=== PATIENT | female | born 1960 | race Caucasian/White ===

== ENCOUNTER 2017-12-11 06:11 | Inpatient (IN) | payer BC ==
[2017-11-29 09:13] LABS: ABSOLUTE BASOPHILS 0.1 thou/uL (0.0-0.2); ABSOLUTE EOSINOPHILS 0.2 thou/uL (0.0-0.7); ABSOLUTE LYMPHOCYTES 2.3 thou/uL (0.8-5.3); ABSOLUTE MONOCYTES 0.4 thou/uL (0.0-1.2); ABSOLUTE NEUTROPHILS 4.3 thou/uL (1.6-8.1); BASOPHILS 0.8 %; EOSINOPHILS 2.8 %; HEMATOCRIT 39.6 % (37.0-47.0); HEMOGLOBIN 13.5 gm/dL (12.0-15.0); LYMPHOCYTES 32.1 %; MCH 31.2 pg (26.0-34.0); MCHC 34.2 g/dL (28.0-37.0); MCV 91.2 fL (80.0-100.0); MONOCYTES 5.3 %; MPV 7.2 fl. (7.2-11.1); NUCLEATED RBCS 0 /100WBC; PLATELET COUNT* 263 thou/uL (150-400); RBC 4.35 mil/uL (4.20-5.00); RDW-CV 14.1 % (10.5-14.5); WBC 7.2 thou/uL (4.0-11.0)
[2017-11-29 09:34] LABS: ALBUMIN 3.6 g/dL (3.4-5.0); CALCIUM 8.7 mg/dL (8.5-10.1); CREATININE 0.9 mg/dL (0.6-1.3); POTASSIUM 4.4 mmol/L (3.5-5.1); TOTAL BILIRUBIN 0.5 mg/dL (<0.1-1.0); TOTAL PROTEIN 6.8 g/dL (6.4-8.2)
[2017-11-29 10:27] LABS: ESR (SEDRATE) 30 mm/hr (0-30)
--- NOTE | 2017-11-29 17:17 | EKG ---
[place] [address] ELECTROCARDIOGRAM REPORT Name: RADHA KINGSTONDOMINIC REDDINGE Room: PRE IN [facility]#: [id number] Admission: Attend Phys: Blayne Warner Discharge: Date of : 62 Report #: [id number] THIS REPORT FOR: //name// [facility] Test Date: 2017-11-29 Test Time: 09:16:18 Pat Name: ANSON KINGSTON Department: Room: Gender: F Inventory Management Specialist: : 1960 Requested By: Morgan Harrison Order Number: [id number] Reading MD: Walker Howell Measurements Intervals Hughes Rate: 93 P: 75 MT: 193 QRS: 43 QRSD: 117 T: 19 QT: 390 QTc: 486 Interpretive Statements Sinus rhythm Nonspecific intraventricular conduction delay Anteroseptal infarct, old Borderline repolarization abnormality No previous ECG available for comparison Electronically Signed On 11-29-2017 17:17:40 IRON ASSORTER by Walker Howell [email or web address] <ELECTRONICALLY SIGNED> By: Walker Howell MD, [facility] 11/29/17 1717 0916 5 Walker Howell MD, FACC /EPI
[2017-11-29 18:10] LABS: GLYCOHEMOGLOBIN (HGB A1C) 6.8 % (4.8-5.6)
[~2017-12-11] VITALS: Ht 175.3 cm; Wt 103.9 kg
[~2017-12-11 06:11] MED LIST: ALTACE10 MG PO; BUMETANIDE0.25 MG/1 PO; BUSPIRONE HCL15 MG PO; CYCLOBENZAPRINE5 MG PO; LABETALOL HCL200 MG PO; LANTUS SUBQ; METFORMIN HCL500 MG PO; MUCINEX1200 MG PO; NAPROSYN500 MG PO; SYNTHROID100 MCG PO; TRAMADOL 50 MG50 MG PO; TURMERIC500 M2 PO; VERAPAMIL E.R240 M1 PO; VITAMIN D1000 UNI1 PO; ZOLOFT25 MG PO
[2017-12-11 12:00] VITALS: BP 131/67
[2017-12-11 16:00] VITALS: BP 160/76
[2017-12-12] VITALS (8 sets, daily range): BP systolic 130–155; BP diastolic 67–87
[2017-12-12 04:21] LABS: HEMATOCRIT 34.5 % (37.0-47.0); HEMOGLOBIN 11.9 gm/dL (12.0-15.0)
--- NOTE | 2017-12-12 16:58 | OP ---
[address] [address] OPERATIVE REPORT Name: ANSON KNIGSTON Room: [address] IN .#: [id number] Admission: 12/11/17 Attend Phys: Blayne Warner Discharge: Date of : 62 Report #: [id number] THIS REPORT FOR: //name// CC: Morgan Joseph DICTATED BY: Javier De Leon DATE OF SERVICE: 12/11/2017 PREOPERATIVE DIAGNOSIS: Advanced degenerative joint disease, left knee. POSTOPERATIVE DIAGNOSIS: Advanced degenerative joint disease, left knee. PROCEDURE: Left total knee arthroplasty with the following components: 1. Mike Persona total knee arthroplasty system with a size 7 CR femoral component. 2. A size E tibial baseplate. 3. A 32 mm tri-peg patella. 4. 40 mm polyethylene spacer, medial congruent. 5. Palacos cement with antibiotics. SURGEON: Morgan Harrison DO. PHARMACY GRADUATE INTERN: Javier De Leon DO. ANESTHESIA: General. ESTIMATED BLOOD LOSS: 200 mL. TOURNIQUET TIME: 60 minutes at 300 mmHg. SPECIMENS: None. COMPLICATIONS: None. CONDITION: The patient is stable to PACU. DRAINS: None. INDICATIONS: The patient is a pleasant 57-year-old female with longstanding left knee pain. She has tried and failed nonoperative care in the form of oral anti-inflammatories, intraarticular steroid injections, physical activity regimen and activity modification. X-rays revealed [id number] apposition of the medial compartment with varus alignment, tricompartmental arthritic change [address] [place] [address] OPERATIVE REPORT Name: ANSON KINGSTON Room: [address] IN [facility].#: [id number] Admission: 12/11/17 Attend Phys: Blayne Warner Discharge: Date of : 62 Report #: [id number] with joint space narrowing, osteophytic lipping and subchondral sclerosis and subchondral cystic change. After discussing the risks, benefits, complications, alternatives and indications to left total knee arthroplasty including but not limited to bleeding, infection, neurovascular injury, need for further surgery, continued pain, DVT, PE and the Hunt anesthesia, she is willing to proceed. Consent is available on the chart. DESCRIPTION OF PROCEDURE: The patient was seen in the preoperatively holding area and operative site initialed by the surgeon. She was brought to the operative suite, placed on operative table in supine position. General anesthesia was induced. A well-padded tourniquet was placed in left upper thigh and the left lower extremity sterilely prepped and draped in normal fashion. Timeout was performed in usual fashion and all attendants were in agreement. Midline incision was made over the left knee through skin and subcutaneous tissue. New scalpel blade was then used to make a medial parapatellar arthrotomy. The patella was everted and Hoffa's fat pad was trimmed and the anterior horn of medial and lateral meniscus was incised. The PCL was sharply excised. ACL was absent. Due to her bleeding, a tourniquet was then insufflated after the leg was exsanguinated with an Esmarch. Attention then turned to the distal femur where intramedullary reamer was used to access the femoral canal. Intramedullary cutting block was then assembled and an extra 2 mm resection was measured to the patient's preoperative extension leg. Distal femoral cutting block was pinned into place and oscillating saw used to make a distal femoral cut in standard fashion. Excess bone was removed. Attention was then turned to the proximal tibia where the extramedullary guide was aligned with the medial third of tibial tubercle, tibial crest, middle of talus and second ray of the foot. A feeler gauge was used to assess the depth of cut and the cutting block was pinned into place. Oscillating saw was used to make a standard proximal tibial cut through the captured cutting block and excess bone was removed. Retractors protected the vital soft tissues. The medial and lateral meniscus was excised with electrocautery. Attention was then turned to the distal femur where the femur was sized to size 7 and the guide was drilled in 3 degrees, external rotation with regard to posterior condylar access. A 4-in-1 cutting block was then impacted into place and pinned into place. Oscillating saw was used to make the standard 4-in-1 cut through the captured cutting block. Excess bone was removed. Osteophytes were removed with a rongeur. There were subchondral cysts that were cleaned out with a curette over the tibia. Posterior osteophytes were then removed with a curved osteotome and mallet off the femur. A trial tibial component was measured and placed and pinned into place. Trial femoral component was impacted into place and a 10 mm spacer was trialed. She had symmetric varus and valgus stress and a full extension and good flexion. Attention was then turned to patella where neurolysis was performed with electrocautery and the reamer was used to resect the patella in the standard fashion. Trial patellar button was measured and 3 peg holes were drilled. Trial patellar button was placed and knee brought through full range of motion showing excellent [place] [address] OPERATIVE REPORT Name: ANSON KINGSTON Room: [address]#: [id number] Admission: 12/11/17 Attend Phys: Blayne Warner Discharge: Date of : 62 Report #: [id number] excellent rotation of the tibia. The proximal tibia was then prepared with the cruciform punch and reamer in standard fashion. Trial components were removed and the knee was thoroughly irrigated with normal saline via pulsatile lavage. Cement was mixed on the back table, mixed with antibiotics and applied to the final components and all bony surfaces. Final components were impacted into place and excess cement was removed. A 40 mm spacer was used for compression while the cement was hardening. After allowing adequate time for the cement to harden, knee was thoroughly irrigated with the Betadine solution followed by normal saline rinse. Final 40 mm polyethylene spacer was placed with audible click as the spacer snapped in position. The knee was brought through full range of motion once again and was extremely stable. Tourniquet was deflated and topical TXA was applied to joint and allowed to congeal. Electrocautery was utilized for hemostasis. A medial parapatellar arthrotomy was closed with #1 Vicryl in tovkyr-zv-ziysk fashion, which was reinforced with a #5 Ti-Cron over the superior medial aspect of the patella. Superficial wound was thoroughly irrigated with normal saline and the subcutaneous tissue closed with a 2-0 Monocryl in simple inverted interrupted fashion. A posterior capsular block was administered with orthopedic cocktail prior to closure of the capsule. Skin was closed with a 3-0 Stratafix and skin glue. Dressing was placed in the form of Mepilex Ag dressing, 4 x 4s, ABDs, soft roll and compressive Moy wrap. The patient was awoken from general anesthesia and brought to PACU in stable fashion. She tolerated the procedure well. Dr. Harrison was present through all critical aspects of surgery. Sponge and needle counts were correct x 2. <ELECTRONICALLY SIGNED> By: Morgan Harrison DO 12/12/17 1658 1454 [id number] Harrison DO /nt
[2017-12-13] VITALS (7 sets, daily range): BP systolic 106–148; BP diastolic 62–78
[2017-12-13 07:09] LABS: HEMATOCRIT 33.1 % (37.0-47.0); HEMOGLOBIN 11.3 gm/dL (12.0-15.0)
--- NOTE | 2017-12-13 15:58 | S ---
[place] [address] SURGICAL PATH RPT PROCEDURE Name: ANSON KINGSTON Room: [address] IN M.R.#: [id number] Admission: 12/11/17 Date of : 62 Discharge: Report #: [id number] Path Case #: [id number] PATHOLOGY REPORT COLLECTION DATE: 12/11/2017 RECEIVED DATE: 12/12/2017 SUBMITTING PHYS: Dr. Morgan Harrison OTHER PHYS: Dr. Edwar Hodges SPECIMEN(S) RECEIVED: A.Left knee bone and tissue * * * * * * * * * * * * FINAL DIAGNOSIS: Left knee bone and tissue: - Mild, nonspecific chronic synovitis, benign meniscus and benign bone and cartilage with severe degenerative changes. (ROBLES:alfredo; 12/13/2017) PATHOLOGIST: Jad Suarez M.D. REPORT ELECTRONICALLY SIGNED BY: Jad Suarez M.D. DATE/TIME: 12/13/2017 15:58 * * * * * * * * * * * * GROSS PATHOLOGY: Received in formalin labeled "Anson Kingston, left knee bone and tissue" and consists of a few irregular-shaped fragments of bone consistent with femoral condyle and tibial plateau ranging in size from 0.9 cm-6.2 cm and aggregating to 10.5 x 9.7 x 2.5 cm. The articular surfaces are roughened, granular, focally nodular, and show areas of eburnation measuring up to 2.3 cm. There are peripheral osteophytes identified measuring up to 0.3 cm thick. There is a separate osteophyte within the aggregate, 3.0 x 1.5 x 0.8 cm. There are fragments of meniscus and fibroadipose tissue present. Ground Systems Engineer sections are submitted A1-A3. A1, tibial plateau, sales representative graphic art, decal A2, osteophyte, sales representative graphic art, decal A3, meniscus and fat, sales representative graphic art (ANETTE; 12/12/2017) CLINICAL HISTORY: Left knee degenerative joint disease INITIAL CPT CODE(S): A; 26185, [address] [place] [address] SURGICAL PATH RPT PROCEDURE Name: ANSON KINGSTON Room: [address] M.R.#: [id number] Admission: 12/11/17 Date of : 62 Discharge: Report #: [id number] Path Case #: [id number] Professional services performed by [employer] at [facility], [address] [place] [id number]. Technical services performed by [employer] at [address] [place] [address], [facility] [address] [place] [address]. [facility] [address] [place] [address] PHONE: [phone] DIRECTOR: Shankar Han M.D. * * * END OF REPORT * * *
[2017-12-14] VITALS (7 sets, daily range): BP systolic 115–139; BP diastolic 55–73
[2017-12-14] MEDS ORDERED: ELIQUIS2.5 MG PO (13:19)
[2017-12-14] MEDS ORDERED: HYDROCODONE-AP1 EAC6 PO (13:59)
[2017-12-14] MEDS ORDERED: OXYCODONE HCL 55 MG PO (14:00)
== END 2017-12-14 14:45 | disposition home health service (06) | DRG 470 ==
LOC: M.PRE 06:11 → M.TBA 11:17 → M.ORTHSURG 11:17 → M.PRE 12:28 → M.ORTHSURG 15:50
PROVIDERS: Orthopaedic Surgery; ADMIT Internal Medicine
PROC: 0SRD0J9 Replacement of Left Knee Joint with Synthetic Substitute, Cemented, Open Approach (ICD-10-PCS; principal; 2017-12-11)
DX: M17.12 Unilateral primary osteoarthritis, left knee (principal); D62 Acute posthemorrhagic anemia; E11.9 Type 2 diabetes mellitus without complications; I10 Essential (primary) hypertension; E03.9 Hypothyroidism, unspecified; F32.9 Major depressive disorder, single episode, unspecified; F17.210 Nicotine dependence, cigarettes, uncomplicated; Z88.8 Allergy status to other drugs, medicaments and biological substances; Z79.4 Long term (current) use of insulin; Z79.899 Other long term (current) drug therapy

== ENCOUNTER 2018-07-02 11:08 | Inpatient (IN) | payer BC ==
[~2018-07-02] VITALS: Ht 175.3 cm; Wt 93.3 kg
[~2018-07-02 11:08] MED LIST changes: +ELIQUIS2.5 MG PO; +HYDROCODONE-AP1 EAC6 PO; +OXYCODONE HCL 55 MG PO
[2018-07-02 11:10] VITALS: BP 123/75
[2018-07-02] MEDS ORDERED: VITAMINC500 PO (11:24)
[2018-07-02] MEDS ORDERED: B COMPLEX1 EACH PO (11:24)
[2018-07-02] MEDS ORDERED: NAPROSYN500 MG PO (11:25)
[2018-07-02] MEDS ORDERED: BUMETANIDE0.25 MG/1 PO (11:25)
[2018-07-02] MEDS ORDERED: PREDNISONE 10 M10 MG PO (11:26)
[2018-07-02] MEDS ORDERED: VERAPAMIL E.R240 M1 PO (11:26)
[2018-07-02] MEDS ORDERED: NIACIN 100MG T100 M1 PO (11:26)
[2018-07-02] MEDS ORDERED: ZITHROMAX1 GM PO (11:27)
[2018-07-02 11:39] LABS: ANION GAP 7 mmol/L (7-16); BUN 11 mg/dL (7-18); CHLORIDE 101 mmol/L (98-107); CO2 27 mmol/L (21-32); CREATININE 0.8 mg/dL (0.6-1.3); GLUCOSE 247 mg/dL (70-99); SODIUM 135 mmol/L (136-145)
[2018-07-02 11:41] LABS: INR 0.9; PROTIME 9.7 Seconds (9.20-11.50)
[2018-07-02 11:52] LABS: ALBUMIN 2.3 g/dL (3.4-5.0); ALKALINE PHOSPHATASE 610 U/L (46-116); LIPASE 98 U/L (73-393); NT-PRO BRAIN NAT PEPTIDE 1403 pg/mL (<300); SGOT 44 U/L (15-37); SGPT 63 U/L (30-65); TOTAL BILIRUBIN 0.7 mg/dL (<0.1-1.0); TOTAL PROTEIN 7.1 g/dL (6.4-8.2); TROPONIN-I LEVEL <0.06 ng/mL (<0.06)
[2018-07-02 12:22] LABS: HYPOCHROMASIA 1+; PLATELET ESTIMATE ADEQUATE
[2018-07-02 12:23] LABS: MACROCYTES 1+; POLYCHROMASIA 1+
[2018-07-02 13:11] LABS: ABSOLUTE LYMPHOCYTES 1.8 thou/uL (0.8-5.3); ABSOLUTE MONOCYTES 0.7 thou/uL (0.0-1.2); ABSOLUTE NEUTROPHILS 6.8 thou/uL (1.6-8.1); HEMATOCRIT 35.5 % (37.0-47.0); MCH 31.8 pg (26.0-34.0); MCHC 33.9 g/dL (28.0-37.0); MCV 93.7 fL (80.0-100.0); MPV 6.7 fl. (7.2-11.1); PLATELET COUNT* 209 thou/uL (150-400); RBC 3.79 mil/uL (4.20-5.00); RDW-CV 14.7 % (10.5-14.5); WBC 9.3 thou/uL (4.0-11.0)
[2018-07-02 14:08] VITALS: BP 111/59
[2018-07-02 14:22] VITALS: BP 108/55
[2018-07-02 16:03] VITALS: BP 121/65
--- NOTE | 2018-07-02 17:14 | EKG ---
[place] [address] ELECTROCARDIOGRAM REPORT Name: HTEEANSON ETRRANCE Room: [address] ADM IN [facility].#: [id number] Admission: 07/02/18 Attend Phys: Blayne Warner Discharge: Date of : 62 Report #: [id number] THIS REPORT FOR: //name// [facility] ED Test Date: 2018-07-02 Test Time: 11:31:09 Pat Name: ANSON KINGSTON Department: Room: [facility] Gender: F [employer] Professor: TEAGAN : 1960 Requested By: Clarke Ayon Order Number: [id number] MD: Radames Caro Measurements Intervals Melba Rate: 91 P: 51 ME: 130 QRS: 8 QRSD: 115 T: 141 QT: 407 QTc: 501 Interpretive Statements Sinus rhythm Nonspecific intraventricular conduction delay Anterior infarct, old Nonspecific repol abnormality, lateral leads Compared to ECG 11/29/2017 09:16:18 No significant changes Electronically Signed On 07-02-2018 17:14:05 CDT by Radames Caro [email or web address] <ELECTRONICALLY SIGNED> By: Radames Caro MD, [facility] 07/02/18 1714 1131 1131 Radames Caro MD, [facility] /EPI
[2018-07-02 17:26] LABS: URINE BILIRUBIN NEGATIVE (Negative); URINE BLOOD NEGATIVE (Negative); URINE CLARITY CLEAR; URINE COLOR YELLOW; URINE GLUCOSE-RANDOM NEGATIVE (Negative); URINE KETONES NEGATIVE (Negative); URINE LEUKOCYTES NEGATIVE (Negative); URINE NITRITE NEGATIVE (Negative); URINE PROTEIN NEGATIVE (Negative); URINE SPECIFIC GRAVITY <= 1.005 (1.005-1.030); URINE UROBILINOGEN 0.2 E.U./dl (0.2-1.0)
[2018-07-02 20:00] VITALS: BP 128/66
[2018-07-02 20:41] LABS: CALCIUM 7.9 mg/dL (8.5-10.1); CREATININE 0.8 mg/dL (0.6-1.3); MAGNESIUM 1.7 mg/dL (1.8-2.4); POTASSIUM 3.7 mmol/L (3.5-5.1)
[2018-07-03] VITALS: BP 130/71
--- NOTE | 2018-07-03 03:36 | NUR ---
PT ALERT ORIENTED. UP AD KAYLYN IN ROOM. TELEMETRY SHOWS SR. O2 AT 3 LITERS NC. TRAMADOL AND FLEXERIL GIVEN HS FOR BACK PAIN. RECHECK OF POTASSIUM 3.7.
[2018-07-03 04:00] VITALS: BP 148/79
[2018-07-03 08:30] VITALS: BP 131/71
--- NOTE | 2018-07-03 10:41 | NUR ---
ASSUMED PT CARE AT 0700 PT IS ALERT AND ORIENTED X 4 PT DENIES PAIN OR SOA ON 3L/NC, PT IS UP AD KAYLYN PT IS NOT A FALL RISK, PT IS ST ON THE MONITOR, PT VSS, PT HAS ABT RUNNING NO ADVERSE REACTION NOTES, PT IS PLEASANT AND COOPERATIVE, WILL CONTINUE TO MONITOR
[2018-07-03 11:38] LABS: NT-PRO BRAIN NAT PEPTIDE 783 pg/mL (<300); TROPONIN-I LEVEL <0.06 ng/mL (<0.06)
[2018-07-03 12:17] VITALS: BP 155/71
--- NOTE | 2018-07-03 13:58 | NUR ---
Pt is A&O. Resides at home alone. Independent with ADLs, continues to work. Pt has a walker that she can use as needed. No home o2. Hx of [facility]. Supportive friends and family. No hx of SNF. Goal is to return home at [place]. Following.
[2018-07-03 16:00] VITALS: BP 144/76
--- NOTE | 2018-07-03 17:08 | 2DMMODE ---
[place] [address] 2 D/M-MODE ECHOCARDIOGRAM Name: ANSON KINGSTON Room: [address] IN [facility]#: [id number] Admission: 07/02/18 Attend Phys: Edwar Joseph Discharge: Date of : 62 Date of Service: 07/03/18 1708 Report #: [id number] THIS REPORT FOR: //name// APPROVED REPORT Study performed: 07/03/2018 14:16:03 EXAM: Comprehensive 2D, Doppler, and color-flow Echocardiogram Patient Location: In-Patient Room #: [facility] Status: routine BSA: 2.09 HR: 95 bpm BP: 155/71 mmHg Rhythm: NSR Other Information Study Quality: Good Indications Congestive Heart Failure Dyspnea 2D Dimensions IVSd: 14.08 (7-11mm) LVOT Diam: 20.25 (18-24mm) LVDd: 45.82 mm PWd: 11.00 (7-11mm) Ascending Ao: 29.21 (22-36mm) LVDs: 30.11 (25-40mm) Aortic Root: 31.84 mm Aortic Valve AoV Peak Benji.: 2.02 m/s AO Peak Gr.: 16.27 mmHg LVOT Max P.05 mmHg AO Mean Gr.: 9.79 mmHg LVOT Mean P.02 mmHg LVOT Max V: 1.23 m/s AO V2 VTI: 35.63 cm LVOT Mean V: 0.80 m/s SUAD (VTI): 2.18 cm2 LVOT V1 VTI: 24.06 cm Mitral Valve E/A Ratio: 1.05 MV Decel. Time: 258.99 ms MV E Max Benji.: 0.90 m/s MV PHT: 75.11 ms MVA (PHT): 2.93 [place] [address] 2 D/M-MODE ECHOCARDIOGRAM Name: ANSON KINGSTON Room: [address] IN [facility]#: [id number] Admission: 07/02/18 Attend Phys: Edwar Joseph Discharge: Date of : 62 Date of Service: 07/03/18 1708 Report #: [id number] TDI Medial E' Benji.: 0.14 m/s Lateral E' Benji.: 0.13 m/s Pulmonary Valve PV Peak Benji.: 1.00 m/s PV Peak Gr.: 4.02 mmHg Left Ventricle The left ventricle is normal size. There is normal LV segmental wall motion. There is normal left ventricular wall thickness. Left ventricular systolic function is normal. The left ventricular ejection fraction is within the normal range. LVEF is 55-60%. The left ventricular diastolic function is normal. Right Ventricle The right ventricle is normal size. The right ventricular systolic function is normal. Atria The left atrium size is normal. The right atrium size is normal. Aortic Valve Mild aortic valve sclerosis. No aortic regurgitation is present. There is no aortic valvular stenosis. Mitral Valve The mitral valve is normal in structure. Trace mitral regurgitation. No evidence of mitral valve stenosis. Tricuspid Valve The tricuspid valve is normal in structure. Trace tricuspid regurgitation. Pulmonic Valve The pulmonary valve is normal in structure. There is no pulmonic valvular regurgitation. Great Vessels The aortic root is normal in size. IVC is normal in size and collapses >50% with inspiration. Pericardium There is no pericardial effusion. <Conclusion> [place] [address] 2 D/M-MODE ECHOCARDIOGRAM Name: ANSON KINGSTON TERRANCE Room: [address] IN [facility]#: [id number] Admission: 07/02/18 Attend Phys: Edwar Joseph Discharge: Date of : 62 Date of Service: 07/03/18 1708 Report #: [id number] The left ventricle is normal size. There is normal left ventricular wall thickness. Left ventricular systolic function is normal. The left ventricular ejection fraction is within the normal range. LVEF is 55-60%. The left ventricular diastolic function is normal. The right ventricle is normal size. The left atrium size is normal. Mild aortic valve sclerosis. The mitral valve is normal in structure. Trace mitral regurgitation. The tricuspid valve is normal in structure. IVC is normal in size and collapses >50% with inspiration. There is no pericardial effusion. There is normal LV segmental wall motion. <ELECTRONICALLY SIGNED> By: Albino Ennis MD, FACC 07/03/181707 07 07 Albino Ennis MD, FACC /INF
[2018-07-03 19:30] VITALS: BP 124/96
[2018-07-04] VITALS: BP 128/63
[2018-07-04 04:00] VITALS: BP 123/64
--- NOTE | 2018-07-04 04:35 | NUR ---
PATIENT RESTING IN BED. REPORT GIVEN TO ONCOMING NURSE. WILL MONITOR.
[2018-07-04 04:52] LABS: HEMATOCRIT 34.8 % (37.0-47.0); HEMOGLOBIN 11.6 gm/dL (12.0-15.0); MCH 31.8 pg (26.0-34.0); MCHC 33.5 g/dL (28.0-37.0); MPV 7.7 fl. (7.2-11.1); NUCLEATED RBCS 0 /100WBC; PLATELET COUNT* 255 thou/uL (150-400); RBC 3.66 mil/uL (4.20-5.00); RDW-CV 14.6 % (10.5-14.5); WBC 9.7 thou/uL (4.0-11.0)
[2018-07-04 05:15] LABS: CALCIUM 8.1 mg/dL (8.5-10.1); CREATININE 0.7 mg/dL (0.6-1.3); MAGNESIUM 2.2 mg/dL (1.8-2.4); POTASSIUM 3.3 mmol/L (3.5-5.1); TOTAL BILIRUBIN 0.5 mg/dL (<0.1-1.0); TOTAL PROTEIN 6.9 g/dL (6.4-8.2)
[2018-07-04 06:09] LABS: ABSOLUTE EOSINOPHILS 0.3 thou/uL (0.0-0.7); ABSOLUTE LYMPHOCYTES 2.5 thou/uL (0.8-5.3); ABSOLUTE MONOCYTES 0.3 thou/uL (0.0-1.2); ABSOLUTE NEUTROPHILS 6.6 thou/uL (1.6-8.1); METAMYELOCYTES 1 %; PLATELET ESTIMATE ADEQUATE; POLYCHROMASIA 1+
[2018-07-04 08:00] VITALS: BP 146/70
[2018-07-04 12:00] VITALS: BP 128/70
--- NOTE | 2018-07-04 12:20 | NUR ---
ASSUMED PT CARE AT 0700 PT IS ALERT AND ORIENTED X 4 PT DENIES PAIN OR SOA ON RA, PT IS SR ON THE MONITOR, PT IS UP AD KAYLYN PT IS NOT A FALL RISK PT HAS BEEN CLEARED TO DISCHARGE, WILL CONTINUE TO MONITOR
[2018-07-04] MEDS ORDERED: PROTONIX40 M1 PO (12:49)
[2018-07-04] MEDS ORDERED: LEVAQUIN 750 M750 MG PO (12:50)
[2018-07-04 12:52] VITALS: BP 128/70
[2018-07-04 13:17] VITALS: BP 128/70
== END 2018-07-04 13:25 | disposition home or self-care (01) | DRG 177 ==
LOC: M.ERS 11:08 → M.TBA-ER 12:52 → M.2W 12:52
PROVIDERS: Emergency Medicine; Internal Medicine; ADMIT Internal Medicine
DX: J15.6 Pneumonia due to other Gram-negative bacteria (principal); J96.01 Acute respiratory failure with hypoxia; I50.31 Acute diastolic (congestive) heart failure; E11.9 Type 2 diabetes mellitus without complications; I11.0 Hypertensive heart disease with heart failure; E03.9 Hypothyroidism, unspecified; F32.9 Major depressive disorder, single episode, unspecified; F17.210 Nicotine dependence, cigarettes, uncomplicated; M19.90 Unspecified osteoarthritis, unspecified site; Z87.01 Personal history of pneumonia (recurrent); Z79.899 Other long term (current) drug therapy; Z79.84 Long term (current) use of oral hypoglycemic drugs; Z79.4 Long term (current) use of insulin; Z88.8 Allergy status to other drugs, medicaments and biological substances; Z82.49 Family history of ischemic heart disease and other diseases of the circulatory system; Z83.3 Family history of diabetes mellitus; Z83.49 Family history of other endocrine, nutritional and metabolic diseases; Z71.6 Tobacco abuse counseling